=== PATIENT | female | born 2000 | race Two or more races ===

== ENCOUNTER 2023-09-04 00:45 | Emergency (ER) | payer OTHER ==
[~2023-09-04] VITALS: Ht 160 cm; Wt 81.6 kg
[2023-09-04] MEDS ORDERED: RINGERS SOLUTION,LACTATED 1,000 ML IV STA (01:43)
[2023-09-04] MEDS ORDERED: PROMETHAZINE HCL 50 MG/ML AMPUL IM STA (01:44)
[2023-09-04] MEDS ORDERED: FAMOtidine 10 MG/ML (4ML VIAL) IV PUSH STA (01:45)
[2023-09-04] MEDS ORDERED: KETOROLAC TROMETHAMINE 30 MG VIAL IV STA (01:45)
[2023-09-04] MEDS ORDERED: BISMUTH SUBSALICYLATE 524 MG/30 ML BLIST.PACK PO STA (01:46)
[2023-09-04] MEDS ORDERED: LOPERAMIDE HCL 2 MG CAPSULE PO STA (01:47)
[2023-09-04] MEDS ORDERED: LOPERAMIDE HCL 2 MG CAPSULE PO ONE (02:15)
[2023-09-04] MEDS ORDERED: KETOROLAC TROMETHAMINE 30 MG VIAL ONE (02:15)
[2023-09-04] MEDS ORDERED: BISMUTH SUBSALICYLATE 524 MG/30 ML BLIST.PACK PO ONE (02:16)
[2023-09-04] MEDS ORDERED: PROMETHAZINE HCL 50 MG/ML AMPUL IM ONE (02:16)
[2023-09-04] MEDS ORDERED: FAMOtidine 200mg/20ml VIAL ONE (02:17)
[2023-09-04 02:46] LABS: HEMATOCRIT 41.4 % (36.0-45.00); MEAN CELL VOLUME 85.1 fL (80.00-100.00); MEAN CORPUSCULAR HEMOGLOBIN 28.7 pg (27.00-32.0); MEAN CORPUSCULAR HGB CONC 33.7 g/dl (32.0-36.0); PLATELET COUNT 208 K/uL (150-450); RED BLOOD COUNT 4.86 M/uL (4.00-6.00); RED CELL DISTRIBUTION WIDTH 14.4 % (11.5-14.5)
[2023-09-04 04:36] LABS: CALCIUM 9.1 mg/dL (8.5-10.1); CREATININE SERUM 0.71 mg/dL (0.55-1.02); GFR 102.01; POTASSIUM 4.37 mEq/L (3.5-5.1)
== END 2023-09-04 05:45 | disposition home or self-care (01) ==
LOC: ER 00:46
DX: K52.9 Noninfective gastroenteritis and colitis, unspecified (principal); N94.6 Dysmenorrhea, unspecified